=== PATIENT | female | born 1995 | race Native Hawaiian/Other Pacific Islander ===

== ENCOUNTER 2024-07-01 08:39 | Outpatient (REF) | payer SELFPAY ==
[2024-07-01 11:22] LABS: MANUAL DIFF FLAG NO
[2024-07-01 11:29] LABS: Basophils Percent Auto 0.5 % (0-2); Eosinophils Absolute Auto 0.2 X10*3/uL (0.0-0.4); Eosinophils Percent Auto 2.5 % (0-4); Hematocrit 41.4 % (37.0-47.0); Hemoglobin 13.8 g/dl (12.0-16.0); Imm Gran Abs Auto 0.01 X10*3/uL (0.00-0.03); Imm Gran Pct Auto 0.2 % (0.0-0.4); Lymphocytes Absolute Auto 2.5 X10*3/uL (1.2-4.9); Lymphocytes Percent Auto 39.9 % (20-40); Mean Corpuscular HGB Conc 33.3 g/dl (31.0-35.0); Mean Corpuscular Hemoglobin 29.6 pg (27.0-33.0); Mean Corpuscular Volume 88.8 fL (80.0-98.0); Mean Platelet Volume 10.2 fL (9.4-12.3); Monocytes Absolute Auto 0.5 X10*3/uL (0.1-1.2); Monocytes Percent Auto 7.3 % (2-11); Neutrophils Absolute Auto 3.2 x10*3/uL (2.0-8.3); Neutrophils Percent Auto 49.6 % (45-73); Platelet Count 313 X10*3/uL (160-400); Red Blood Count 4.66 X10*6/uL (4.20-5.50); Red Cell Distribution Width 12.1 % (11.0-16.0); White Blood Count 6.3 X10*3/uL (4.8-10.8)
[2024-07-01 11:45] LABS: Alanine Aminotransferase 48 U/L (0-31); Albumin Level 4.1 g/dL (3.5-5.0); Alkaline Phosphatase 109 U/L (39-117); Anion Gap 12 (12-20); Aspartate Amino Transferase 39 U/L (5-31); Bilirubin Total 0.2 mg/dL (0.0-1.0); Blood Urea Nitrogen 14 mg/dL (9-16); Calcium 9.3 mg/dL (8.4-10.2); Carbon Dioxide 23 mmol/L (22-29); Chloride 108 mmol/L (96-108); Estimated Glomerular Filt Rate > 60; Glucose Random 104 mg/dL (60-115); Potassium 4.1 mmol/L (3.3-5.1); Sodium 139 mmol/L (135-145); Total Protein 7.3 g/dL (6.5-8.0)
[2024-07-01 12:02] LABS: HCG Quantitative < 2 mIU/mL; TSH reflex Free T4 1.81 uIU/mL (0.32-4.0); Vitamin D 25-OH Total 40.9 ng/mL (>30)
[2024-07-01 12:20] LABS: HBS Num1 0.27 mIU/mL (0-7.99); HBc Num1 0.19 S/CO (0.00-0.79); HBsAGNum1 0.35 S/CO (0.00-0.99); Hepatitis B Core Antibody Nonreactive (Nonreactive); Hepatitis B Surface Antigen Negative (Negative); ~HepC Num1 0.14 S/CO (0.00-0.79); ~Hepatitis A Antibody IgM Nonreactive (Nonreactive); ~Hepatitis B Surface Antibody NONREACTIVE (Nonreactive); ~Hepatitis C Antibody Nonreactive (Nonreactive)
[2024-07-03 06:48] LABS: Follicle Stimulating Hormone 7.5 mIU/mL; Lutenizing Hormone 9.8 mIU/mL
[2024-07-05 16:25] LABS: RPR Rapid Plasma Reagin NON-REACTIVE (NON-REACTIVE)
== END 2024-07-01 08:40 | disposition home or self-care (01) ==
LOC: HO.HHCL 08:39
PROVIDERS: Visit Provider Internal Medicine
DX: Z51.89 Encounter for other specified aftercare (principal); O03.9 Complete or unspecified spontaneous abortion without complication; E28.2 Polycystic ovarian syndrome; R10.2 Pelvic and perineal pain
CPT/HCPCS: 36415; 80053; 82306; 83001; 83002; 84443; 84702; 85025; 86592; 86704; 86706; 86709; 86803; 87340

== ENCOUNTER 2024-07-05 | Outpatient (REF) | payer MEDICAID, SELFPAY ==
[2024-07-06 13:42] LABS: CT PCR NOT DETECTED (Not Detect.); NG PCR NOT DETECTED (Not Detect.)
[2024-07-06 16:25] LABS: Bacterial Vaginosis PCR POSITIVE (Negative); Candida Group PCR NOT DETECTED (Not Detect); Candida glab krusei PCR NOT DETECTED (Not Detect); Trichomonas vaginalis PCR NOT DETECTED (Not Detect)
== END 2024-07-05 00:01 | disposition home or self-care (01) ==
LOC: HO.HHCLNP
PROVIDERS: Visit Provider Internal Medicine
DX: R10.2 Pelvic and perineal pain (principal); N76.1 Subacute and chronic vaginitis
CPT/HCPCS: 0352U; 87086; 87088; 87186; 87491; 87591

== ENCOUNTER 2024-07-19 08:27 | Outpatient (REF) | payer MEDICAID, SELFPAY ==
--- NOTE | ~2024-07-19 | US_ITS ---
EXAMINATION: US ABDOMEN LIMITED CLINICAL INFORMATION: High liver transaminase level. COMPARISON: None available. TECHNIQUE: Real-time imaging of the right upper quadrant abdominal viscera. Technically difficult study secondary to bowel gas. FINDINGS: PANCREAS: Pancreas not visualized well obscured by bowel gas. LIVER: The liver is normal in size. The liver contour is normal. Increased echogenicity of the liver parenchyma, this can be seen in the setting of hepatic steatosis or liver parenchymal disease. No focal hepatic lesion. There is no intrahepatic biliary duct dilatation seen. GALLBLADDER: Normal. The gallbladder is physiologically distended without evidence of stones, sludge, polyps, wall thickening or pericholecystic fluid. COMMON BILE DUCT: Normal in caliber measuring 0.4 cm in diameter. RIGHT KIDNEY: No hydronephrosis or renal calculi. The kidney measures 10.7 cm in maximum dimension. Fluid-filled structure upper pole probably a prominent calyx versus parapelvic cyst measure 9 x 5 x 10 mm. FREE FLUID: None. US/US abdomen limited IMPRESSION: 1. Increased echogenicity of the liver parenchyma, this can be seen in the setting of hepatic steatosis or liver parenchymal disease. 2. Pancreas not visualized well obscured by bowel gas. 3. Fluid-filled structure upper pole right kidney 10 mm probably a prominent calyx versus parapelvic cyst. Electronically signed by: Melvin Mitchell MD 08/15/2024 05:27 PM RATNA ABDULLAHI
--- NOTE | ~2024-07-19 | US_ITS ---
EXAMINATION: US PELVIS CLINICAL INFORMATION: Pelvic pain COMPARISON: None available. TECHNIQUE: Ultrasound of the pelvis is performed using both transabdominal and transvaginal transducers along with Doppler. Transvaginal imaging is performed due to inadequate visualization transabdominally. FINDINGS: Uterus: The uterus is anteverted and measures 8.5 x 3.8 x 5.4 cm for a volume of 91 cc. The double wall endometrial thickness is 10 mm. The uterus is smooth in contour and has normal myometrial echogenicity. No visible fibroid. Nabothian cysts are present in the cervix Adnexa: Both ovaries are visualized. There is normal color flow to the adnexa. There is no ovarian torsion. There is no pelvic ascites or fluid collection. Right ovary measures 3.3 x 2.2 x 1.7 cm. Left ovary measures 3.4 x 2.2 x 2.2 cm. US/US pelvic and transvaginal IMPRESSION: Unremarkable pelvic ultrasound. Electronically signed by: Phan Multani MD 09/12/2024 10:40 PM RATNA
== END 2024-07-19 08:28 | disposition home or self-care (01) ==
LOC: HO.US 08:27
PROVIDERS: PCP Internal Medicine; Visit Provider Internal Medicine
DX: R10.2 Pelvic and perineal pain (principal)
CPT/HCPCS: 76705; 76830; 76856

== ENCOUNTER 2024-09-17 12:06 | Outpatient (REF) | payer MEDICAID, SELFPAY ==
[2024-09-17 14:07] LABS: Alanine Aminotransferase 50 U/L (0-31); Albumin Level 4.3 g/dL (3.5-5.0); Alkaline Phosphatase 112 U/L (39-117); Aspartate Amino Transferase 33 U/L (5-31); Bilirubin Direct 0.1 mg/dL (0.0-0.5); Bilirubin Total 0.3 mg/dL (0.0-1.0); Total Protein 7.8 g/dL (6.5-8.0)
[2024-09-17 14:15] LABS: Partial Thromboplastin Time 32.9 SEC (26.0-36.8)
[2024-09-17 14:30] LABS: Gamma Glutamyl Transpeptidase 37 U/L (7-33)
[2024-09-21 07:48] LABS: Anti Nuclear Antibody Screen NEGATIVE (NEGATIVE)
[2024-09-21 11:13] LABS: Mitochondrial Antibodies NEGATIVE (NEGATIVE)
[2024-09-22 23:13] LABS: Smooth Muscle Antibody <20 U (<20)
== END 2024-09-17 12:07 | disposition home or self-care (01) ==
LOC: HO.HHCL 12:06
PROVIDERS: Visit Provider Internal Medicine
DX: R74.01 Elevation of levels of liver transaminase levels (principal); N93.8 Other specified abnormal uterine and vaginal bleeding
CPT/HCPCS: 36415; 80076; 82977; 85730; 86015; 86038; 86381

== ENCOUNTER 2024-09-17 12:32 | Outpatient (REF) | payer MEDICAID, SELFPAY ==
[2024-09-21 11:13] LABS: Mitochondrial Antibodies NEGATIVE (NEGATIVE)
[2024-09-23 22:53] LABS: PTT (LAC) Screen 34 sec (<=40)
== END 2024-09-17 12:33 | disposition home or self-care (01) ==
LOC: HO.LAB 12:32
PROVIDERS: Internal Medicine; PCP Student in an Organized Health Care Education/Training Program; Visit Provider Student in an Organized Health Care Education/Training Program
DX: R74.01 Elevation of levels of liver transaminase levels (principal); N93.8 Other specified abnormal uterine and vaginal bleeding
CPT/HCPCS: 36415; 85597; 85598; 85613; 85730; 86381

== ENCOUNTER 2025-06-01 08:32 | Outpatient (REF) | payer MEDICAID, SELFPAY ==
--- OUTSIDE RECORDS SUMMARY | 2025-06-01 09:03 | XMS_ITS | Encounter Summary ---
Author Organization [employer] Address [address] [place] [address] 7[address] [place] [address] Care Team Providers Care Hog Operator Name Role Phone Norma Leal MD Primary Care Provider + Reason for Visit * Reason Onset Date Comments rs no show appt 07/21/2024 Encounter Details Date Type Department Care Team ([facility] st Contact Info) Description 07/21/2024 Telephone [facility] [address], [place] [phone] Hernandez Licona DDS [address] [place] [address] rs no show appt Social History Tobacco Use Types Packs/Day Years Used Date Smoking Tobacco: Never Smokeless Tobacco: Never Alcohol Use Standard Drinks/Week Comments Never 0 (1 standard drink = 0.6 oz pur e alcohol) Depression Answer Date Recorded Patient Health Questionnaire-9 Score 6 03/18/2024 Patient Health Questionnaire-9 Score 6 03/18/2024 Last PHQ-9: Questionnaire Data Not on file 0 03/18/2024 Housing Stability Answer Date Recorded What is your housing situation today? I have valdez dexter 03/08/[address] you li ve. Do you have problems with any of the following? None of the above 03/08/2024 Food Insecurity Answer Date Recorded Within the past 12 months, y ou worried that your food would run out before you got money to buy more: Never True 03/08/2024 Within the past 12 months,th e food you bought just didn't last and you didn't have enough money to get more: Never True 06/2024 Transportation Answer Date Recorded In the past 12 months, has l ack of transportation kept you from medical appts, meetings, work or from getting things needed for daily living? No 03/08/2024 Utilities Answer Date Recorded In the past 12 months, has t he electric, gas, oil or water company threatened to shut off services in your home? No 03/08/2024 Depression Answer Date Recorded Patient Health Questionnaire-2 Score 2 03/18/2024 Comments No Sex and Gender Information Value Date Recorded Sex Assigned at Female 06/16/2023 9:11 AM EDT Legal Sex Female 8:36 AM EDT Gender Identity Female 06/16/2023 9:11 AM EDT Sexual Orientation Straight 06/16/2023 9: 11 AM EDT documented as of this encounter Miscellaneous Notes * Telephone Encounter - Za Varma - 07/21/2024 10:26 AM EDT Patient is looking to rs a no show from 06/21/2024. Patient has been informed that she is on a waitlist an will receive a call from the office to rs appt when it is her turn DR documented in this encounter Plan of Treatment Upcoming Encounters Date Type Department Care Team (Late st Contact Info) Description 06/06/2025 10:00 AM EDT Office Visit [facility] ADULT [facility] [address] [place] [address] Montes-Greenberg, Marisa, DDS [address] [place] [address] documented as of this encounter Visit Diagnoses Not on filedocumented in this encounter Additional Health Concerns Assessment Noted Time PHQ-9 Depression Total Score: 6 03/18/20 10:40 AM EDT documented as of this encounter Care Teams Hog Operator Relationship Specialty Start Date End Date Norma Leal MD [address] [place] [address] PCP - General Internal Medicine 03/18/24 documented as of this encounter
--- OUTSIDE RECORDS SUMMARY | 2025-06-01 09:03 | XMS_ITS | Encounter Summary ---
Author Organization [employer] Address [address] [facility] 7 [place] [address] Care Team Providers Care Customer Insight Analyst Name Role Phone Norma Leal MD Primary Care Provider + Reason for Visit * Reason Onset Date Comments Lab Orders 05/31/2025 Encounter Details Date Type Department Care Team ([facility] Contact Info) Description 05/31/2025 Telephone [facility] [address] [place], [place] [phone] Norma Leal MD [address] [place], [place] [phone] Lab Orders Social History Tobacco Use Types Packs/Day Years Used Date Smoking Tobacco: Never Passive Smoke Exposure: Never Smokeless Tobacco: Never Alcohol Use Standard [...] encounter Miscellaneous Notes * Telephone Encounter - Sage Suero RN - 05/31/2025 1:53 PM EDT TC placed to patient [phone] using [employer] #ID [id number] regarding below message. Patient reported herLMP was 02/2025 and she has had 3 positive home tests. Patient requesting a lab to confirmpregnancy. This RN placed on HCG lab to be obtained at [facility] lab. Pt verbalized understanding. PT to F/U PRN. * Telephone Encounter - David Crouch - 05/31/2025 1:23 PM EDT Tc from pt stating she had a positive at home test and would like lab work to further verify. Please contact pt at [phone]. (Romansh Speaker) documented in this encounter Plan of Treatment Upcoming Encounters Date Type Department Care Team (Late st Contact Info) Description 06/06/2025 10:00 AM EDT Office Visit [facility] ADULT DENTAL [address] [place], [place] [phone] Marisa Hu, DDS [address] [place], [place] [phone] Scheduled Orders Name Type Priority Associated Diagnoses Orde r Schedule hCG, Total, Quantitative Lab Routine Positive urine test Expected: 05/31/2025 (Approximate), Expires: 05/31/2026 documented as of this encounter Visit Diagnoses Diagnosis Positive urine test documented in this encounter Additional Health Concerns Assessment Noted Time PHQ-9 Depression Total Score: 6 03/18/20 10:40 AM EDT documented as of this encounter Care Teams Customer Insight Analyst Relationship Specialty Start Date End Date Norma Leal MD [address] [place] [phone] PCP - General Internal Medicine 03/18/24 documented as of this encounter
--- OUTSIDE RECORDS SUMMARY | 2025-06-01 09:03 | XMS_ITS | Clinical Summary ---
Author Organization [employer] Address [address] [place] [address] 7t [place] [address] Care Team Providers Care Spray Gun Striper Name Role Phone Norma Leal MD Primary Care Provider + Allergies No known active allergies Medications cetirizine (ZyrTEC) 10 MG tabletIndicatio ns:Rash TAKE 1 TABLET BY MOUTH EVERY DAY NEEDED 90 tablet 04/07/2025 Active hydrocortisone 2.5 % cream Apply to skin lesions on arms and face 60 g 1 04/08/2025 Active Active Problems Problem Noted Date Diagnosed Date Poison marivel dermatitis 04/11/2025 Assessment & Plan (04/12/2025 8:33 AM EDT): Wash al lesions with degreasing agent (Maggie dish soap or fells naptha soap) - apply hydrocortisone to each patch of involved skin - take Prednisone 40mg daily x up to 5 days, until lesions reza and clear up in the face - learn how to identify and avoid poison marivel in the wild - f/u with any worsening symptoms on involvement or ears, eyes, mouth Renal cyst 12/17/2024 Assessment & Plan (12/17/2024 1:45 PM EDT): Right kidney, will follow-up renal ultrasound in 6 to 8 months. History of molar 10/04/2024 Overview (10/04/2024): S/p D&E at 11w3d on 01/07/2023, hcg followed to <1 per protocol. Last checked 12/23/2023 at [facility], <1 Class 2 severe obesity due t o excess calories with serious comorbidity and body mass index (BMI) of 36.0 to 36.9 in adult 09/17/2024 Assessment & Plan (09/17/2024 2:29 PM EST): Discussed re weight reduction options including exercise, life style modifications, diet and referral to career development specialist. Recommended to decrease soda and sugary beverage consumption, increase protein intake with meals (at least 1 portion of protein with each meal) to assist with satiety, increase dietary fiber Recommended at least 150 min/week of moderate intensity exercise. Fatty liver 09/17/2024 Assessment & Plan (12/17/2024 1:43 PM EDT): Labs are within normal limits, advised regarding weight reduction, decrease calorie and fat intake, increase exercise and avoid alcohol. Follow-up with me within 6 to 8 months Assessment & Plan (09/17/2024 2:29 PM EST): Advised to get labs done today, will callback prn urgent labs, otherwise will fu in 3mo Advised re weight reduction, decreased high sabrina and fat intake, increase exercise, She doesn't drink ETOH High liver transaminase level 07/05/2024 Assessment & Plan (07/05/2024 5:35 PM EDT): - repeat LFTs and hepatitis profile - order liver ultrasound and f/u with me in 3 months DUB (dysfunctional uterine bleeding) 07/05/2024 Assessment & Plan (12/17/2024 1:43 PM EDT): Labs are within normal limits, will refer to RESOLUTION AGENT for further evaluation and possibly IUD insertion. She will continue using condoms for BC and she is aware of Plan B to use as needed unprotected intercourse. Follow-up with me in 6-month Assessment & Plan (07/05/2024 5:59 PM EDT): - recurrent, menstrual bleeding apparently coming up next week, today's HCG is NEG - will schedule for IUD that will also help with control. She will continue using condoms for BC and we discuss about Plan B prn if she has unprotected intercourse prior to having her next menstrual bleeding. -Will consider progesterone only pill if IUD is not possible. -Will order Lupus anticoagulant, D-dimers and coags to evaluate her hx of thick blood Subacute vaginitis 07/05/2024 Assessment & Plan (07/05/2024 5:34 PM EDT): - treat for BV with Flagyl x 7 days, f/u with results of BV swab PRN Contusion of toenail, initial encounter 07/05/20 Assessment & Plan (07/05/2024 5:48 PM EDT): Not improving for the past year. Advised to avoid pedicure, only filing of toenails Refer to podiatry Pelvic pain 03/18/2024 Assessment & Plan (07/05/2024 5:21 PM EDT): - order pelvic ultrasound, negative test today Assessment & Plan (03/18/2024 2:48 PM EDT): Obtain RESOLUTION AGENT records from [facility] Carlene Woman. Take tylenol prn. PCOS (polycystic ovarian syndrome) 03/18/2024 Assessment & Plan (07/05/2024 5:34 PM EDT): - order pelvic ultrasound, pt has been having abnormal menstrual bleeding Assessment & Plan (03/18/2024 2:48 PM EDT): Order labs Advised to use contraception , I gave her condoms to bring home. Follow-up visit after miscarriage 03/18/2024 Assessment & Plan (03/18/2024 2:55 PM EDT): It seems to have been a molar ? Genetic abn? Obtain records from [facility] RESOLUTION AGENT Check HCG and other labs We discussed re BC, she wants to avoid hormonal rx due to weight gain. I gave her condoms and discussed re emergency BC, may be a candidate for IUD FU w me in 1m and schedule for IUD if applicable Resolved Problems Problem Noted Date Diagnosed Date Resolved Date Decreased vision 09/17/2024 01/10/2025 Encounters Date Type Department Care Team Description 05/31/2025 Telephone [facility] [address] [place] [phone] Norma Leal MD Lab Orders 04/29/2025 10:00 AM EDT Office Visit [facility] ADULT DENTAL [address] [place] [phone] Marisa Hu DDS Dental caries (Primary Dx) 04/08/2025 1:20 PM EDT Office Visit [facility] [address] [place] [phone] Janessa Olivares MD Poison marivel dermatitis (Primary Dx); Dietary counseling; Exercise counseling; Overweight 04/08/2025 Travel 04/07/2025 Telephone [facility] [address] [place] [phone] Norma Leal MD Nurse Triage 04/07/2025 Refill [facility] [address] [phone] Melly Mejia NP Rash 04/06/2025 6:20 PM EDT Office Visit [facility] [address] [address] Melly Mejia NP Rash (Primary Dx) 04/06/2025 Travel from Last 3 Months Social History Tobacco Use Types Packs/Day Years Used Date Smoking Tobacco: Never Passive Smoke Exposure: Never Smokeless Tobacco: Never Tobacco Cessation:Counseling Given: Not Answered Alcohol Use Standard Drinks/Week Comments Never 0 [...] Orientation Straight 06/16/2023 9: 11 AM EDT Last Filed Vital Signs Vital Sign Reading Time Taken Comments Blood Pressure 110/70 04/29/2025 9:59 AM EDT Pulse 73 04/08/2025 1:27 PM EDT Temperature 36.7 C (98.1 F) 04/08/2025 1:27 PM EDT Respiratory Rate 16 04/08/2025 1:27 PM EDT Oxygen Saturation 98% 04/08/2025 1:27 PM EDT Inhaled Oxygen Concentration - - Weight 80.8 kg (178 lb 3.2 oz) 04/08/2025 1:27 P M EDT Height 153 cm (5' 0.24 ) 04/08/2025 1:27 PM EDT Body Mass Index 34.53 04/08/2025 1:27 PM EDT Plan of Treatment Upcoming Encounters Date Type Department Care Team (Late st Contact Info) Description 06/06/2025 10:00 AM EDT Office Visit [facility] ADULT DENTAL [address] [place] [address] Marisa Hu, MANOLOS [address] [place] [address] Health Maintenance Due Date Last Done Comments HIV Screening 1995 Lipid Panel 1995 Disability Screening 1995 Alcohol/Substance Use Screening 2007 Family Planning (PISQ) 2010 HPV Vaccines (1 - 3-dose series) 2010 DTaP/Tdap/Td Vaccines (1 - Tdap) 2014 Hepatitis A Vaccines (1 of 2 - Risk 2-dose series) 2014 Hepatitis B Vaccines (1 of 3 - 19+ 3-dose series) 2014 Pap Smear 2016 Dental Prophylaxis 12/06/2024 06/07/2024 SDOH Screening 03/08/2025 03/08/2024 Depression Screening 03/18/2025 03/18/2024, 03/18/20 Cervical Cancer Screening 2025 HPV/Cotest 2025 COVID-19 Vaccine ( - season) 2025 Influenza Vaccine (#1) 2025 Dental Oral Exam 08/18/2025 02/14/2025, 05/24/2024 Tobacco Screening 04/29/2026 04/29/2025 Dental X-Ray: Bitewings 04/30/2026 04/29/20, 02/14/2025, 05/24/2024, Additional history exists Dental X-Ray: Full Mouth 05/25/2027 05/24/2024 Zoster Vaccines (1 of 2) 2045 RSV Patients and Patients Aged 60 years or older (1 - 1-dose 75+ series) 2070 Hepatitis C Screening Completed 07/01/2024 HIB Vaccines Aged Out No longer eligi ble based on patient's age to complete this topic IPV Vaccines Aged Out No longer eligi ble based on patient's age to complete this topic Meningococcal B Vaccine Aged Out No l onger eligible based on patient's age to complete this topic Meningococcal Vaccine Aged Out No garo aga eligible based on patient's age to complete this topic Pneumococcal Vaccine: Pediatrics (0 to 5 Years) and At-Risk Patients (6 to 49) Years Aged Out No longer eligible based on patient's age to complete this topic RSV under 20 months Aged Out No longe r eligible based on patient's age to complete this topic Rotavirus Vaccines Aged Out No longer eligible based on patient's age to complete this topic Procedures Procedure Name Priority Date/Time Associated Diagnosis Comments BITEWING - SINGLE RADIOGRAPHIC IMAGE Routine 04/29/2025 10:00 AM EDT INTRAORAL - PERIAPICAL FIRST RADIOGRAPHIC IMAGE Routine 04/29/2025 10:00 AM EDT CASE PRESENTATION, DETAILED AND EXTENSIVE TREATMENT PLANNING Routine 04/29/2025 10:00 AM EDT Dental caries 30 KENDRA RESIN-BASED COMPOSITE - 2 SURF, POSTERIOR Routine 04/29/2025 10:00 AM EDT Dental caries PERIODIC ORAL EVALUATION - ESTABLISHED PATIENT Routine 02/14/2025 8:00 AM EDT Encounter for dental examination Dental caries Defective dental buddhist Dental calculus HEPATITIS PANEL, GENERAL Routine 07/01/2024 8:47 AM EDT PCOS (polycystic ovarian syndrome) Full PROPHYLAXIS - ADULT Routine 06/07/2024 8:00 AM EDT Dental calculus INTRAORAL - COMPLETE SERIES OF RADIOGRAPHIC IMAGES Routine 05/24/2024 9:30 AM EDT from Last 3 Months or Most Recently Relevant to Health Maintenance Results * Hepatitis Panel, General (07/01/2024 8:47 AM EDT) Hepatitis A IgM Nonreactive Nonreactive [facility] Comment:IgM antibodies to LEE V not detected; does not exclude earlyacute or recovered HAV infection. ~Hepatitis B Surface Antibody NONREACTIVE Nonreactive [facility] Comment:Nonreactive: < 8.00 mIU/mL Hepatitis B Core Antibody Nonreactive Nonreactive [facility] Hepatitis C Antibody Nonreactive Nonreactive [facility] Comment:Antibodies to HCV no t detected; does not exclude early acuteHCV infection. Hepatitis B Surface Ag Negative Negative [facility] Blood 07/01/2024 8:47 AM EDT 07/01/2024 11:17 AM EDT us Norma Leal MD LAB BLOOD ORDERABLES Fin al Result [facility] [address] [place] [phone] from Last 3 Months or Most Recently Relevant to Health Maintenance Insurance [place] [employer] Member Subscriber Plan / Payer (Ef fective 2023-) Name:Braxton MoraoliSonia Relation to Subscriber:Self Name:Braxton MoraoliSonia Payer ID:Not on file Group ID:Not on file Type:Medicaid Address: [address] [facility] F[facility] D[facility]AL-[facility] MEDICAID LIMITED ADULT DENTAL - HSN FULL (MEDICAID) Care Teams Spray Gun Striper Relationship Specialty Start Date End Date Norma Leal MD [address] [place] [id number] PCP - General Internal Medicine 03/18/24
== END 2025-06-01 08:33 | disposition home or self-care (01) ==
LOC: HO.HHCL 08:32
PROVIDERS: PCP Internal Medicine; Visit Provider Internal Medicine
DX: Z32.01 Encounter for pregnancy test, result positive (principal)
CPT/HCPCS: 36415; 84702